=== PATIENT | male | born 1965 ===

== ENCOUNTER 2020-11-12 20:28 | Emergency (ER) | payer OTHER ==
[2020-11-12 21:19] VITALS: BP 161/92; PULSE 54; RESP 17; TEMP 98
--- NOTE | 2020-11-12 22:29 | ED ---
General Adult HPI - General Chief complaint: Recheck/Abnormal Lab/Rx Stated complaint: Covid Test Time Seen by Provider: 11/12/20 22:25 Source: patient Mode of arrival: ambulatory - History of Present Illness Initial comments: 55-year-old male presents to the emergency room for a chief complaint of needing a coronavirus test. Patient came over to the [facility] and needs a coronavirus testing go back to [place]. Patient denies any symptoms. No fevers. No recent exposures. Denies any complaints.Patient has no other complaints at this time including shortness of breath, chest pain, abdominal pain, nausea or vomiting, headache, or visual changes. - Related Data Allergies Allergy/AdvReac Type Severity Reaction Status Date / Time No Known Allergies Allergy Verified 11/12/20 21:17 Review of Systems ROS Statement: Those systems with pertinent positive or pertinent negative responses have been documented in the HPI. ROS Other: All systems not noted in ROS Statement are negative. Past Medical History Past Medical History: No Reported History History of Any Multi-Drug Resistant Organisms: None Reported Past Surgical History: No Surgical Hx Reported Past Psychological History: No Psychological Hx Reported Smoking Status: Never smoker Past Alcohol Use History: None Reported Past Drug Use History: Marijuana General Exam General appearance: alert Head exam: Present: atraumatic, normocephalic Eye exam: Present: normal appearance, PERRL, EOMI. Absent: scleral icterus, conjunctival injection ENT exam: Present: normal exam, mucous membranes moist Neck exam: Present: normal inspection, full ROM. Absent: tenderness Respiratory exam: Present: normal lung sounds bilaterally. Absent: respiratory distress, wheezes Cardiovascular Exam: Present: regular rate, normal rhythm, normal heart sounds Course Vital Signs 11/12/20 21:17 Temperature 98.0 F Pulse Rate 54 L Respiratory 17 Rate Blood Pressure 161/92 O2 Sat by Pulse 96 Oximetry Medical Decision Making - Medical Decision Making Vitals stable, coronavirus test negative. Patient will be discharged home. - Lab Data Lab Results 11/12/20 Range/Units 21:19 Coronavirus (PCR) Not Detected (Not Detectd) Disposition Clinical Impression: Lab test negative for COVID-19 virus Narrative: Negative rapid covid test Disposition: HOME SELF-CARE Condition: Good Instructions (If sedation given, give patient instructions): Coronavirus Disease 2019 (COVID-19) Is patient prescribed a controlled substance at d/c from ED?: No Referrals: Maskoni,Bashar, MD [REFERRING] - 1-2 days Time of Disposition: 22:28
== END 2020-11-12 22:55 | disposition home or self-care (01) ==
LOC: EC 20:28
DX: Z20.822 Contact with and (suspected) exposure to COVID-19 (principal); F12.90 Cannabis use, unspecified, uncomplicated
CPT/HCPCS: 87635; 99282

== ENCOUNTER 2021-03-07 01:48 | Emergency (ER) | payer SELFPAY ==
[2021-03-07 02:02] VITALS: BP 134/91; PULSE 54; RESP 18; TEMP 97.8
--- NOTE | 2021-03-07 03:06 | ED ---
Recheck HPI - General Chief Complaint: Recheck/Abnormal Lab/Rx Stated Complaint: Covid Test Time Seen by Provider: 03/07/21 01:54 Source: patient, RN notes reviewed Mode of arrival: ambulatory Limitations: no limitations - History of Present Illness Initial Comments: Patient is a 55-year-old male presenting to the emergency department requesting a Covid test for reentry back and into [place]. He denies having any symptoms, no recent cough or chills, no fever. He denies any abdominal complaints, nausea or vomiting. He has no further complaints. His vitals are stable upon arrival. - Related Data Allergies Allergy/AdvReac Type Severity Reaction Status Date / Time No Known Allergies Allergy Verified 03/07/21 02:14 Review of Systems ROS Statement: Those systems with pertinent positive or pertinent negative responses have been documented in the HPI. ROS Other: All systems not noted in ROS Statement are negative. Past Medical History Past Medical History: No Reported History History of Any Multi-Drug Resistant Organisms: None Reported Past Surgical History: No Surgical Hx Reported Past Psychological History: No Psychological Hx Reported Smoking Status: Never smoker Past Alcohol Use History: None Reported Past Drug Use History: Marijuana General Exam - General Exam Comments Initial Comments: GENERAL: Patient is well-developed and well-nourished. Patient is nontoxic and in no acute distress. HEAD: Atraumatic, normocephalic. EYES: Pupils equal round and reactive to light, extraocular movements intact, sclera anicteric, conjunctiva are normal. Eyelids were unremarkable. ENT: Moist mucous membranes. NECK: Normal range of motion, supple without lymphadenopathy or JVD. LUNGS: Unlabored respirations. Breath sounds clear to auscultation bilaterally and equal. No wheezes rales or rhonchi. HEART: Regular rate and rhythm without murmurs, rubs or gallops. ABDOMEN: Soft, nontender, normoactive bowel sounds. No guarding, no rebound. No masses appreciated. MUSCULOSKELETAL: Normal extremities with adequate strength and normal range of motion, no pitting or edema. No clubbing or cyanosis. SKIN: Warm, Dry, normal turgor, no rashes or lesions noted. Course Vital Signs 03/07/21 01:59 Temperature 97.8 F Pulse Rate 54 L Respiratory 18 Rate Blood Pressure 134/91 O2 Sat by Pulse 97 Oximetry Medical Decision Making - Medical Decision Making Patient is a 55-year-old male here for a covid test for reentry back into [place]. He has no symptoms, no complaints, exam is normal. Covid test is negative. He is stable for discharge. - Lab Data Lab Results 03/07/21 Range/Units 02:05 Coronavirus (PCR) Not Detected (Not Detectd) Disposition Clinical Impression: Lab test negative for COVID-19 virus Disposition: HOME SELF-CARE Condition: Stable Instructions (If sedation given, give patient instructions): Normal Exam (ED) Additional Instructions: Please return to the Emergency Department if symptoms worsen or any other concerns. Covid test negative. Is patient prescribed a controlled substance at d/c from ED?: No Referrals: None,Stated [Primary Care Provider] - 1-2 days Time of Disposition: 03:18
== END 2021-03-07 03:52 | disposition home or self-care (01) ==
LOC: EC 01:48
DX: Z20.822 Contact with and (suspected) exposure to COVID-19 (principal)
CPT/HCPCS: 87635; 99282